=== PATIENT | male | born 1975 | race Caucasian/White ===

== ENCOUNTER 2024-03-17 08:55 | Outpatient (RCR) | payer BC, SELFPAY | END 2024-07-15 23:59 | disposition home or self-care (01) | PROVIDERS: Visit Provider Orthopaedic Surgery | DX: M22.2X1 Patellofemoral disorders, right knee (principal); M25.561 Pain in right knee; Z51.89 Encounter for other specified aftercare | CPT/HCPCS: 97110; 97161 ==